=== PATIENT | female | born 2000 | race American Indian/Alaskan Native ===

== ENCOUNTER 2018-02-05 19:45 | Emergency (ER) | payer SELFPAY ==
[2018-02-05 20:24] VITALS: BP 124/73; PULSE 76; RESP 18; TEMP 98.4; O2SAT 99
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
== END 2018-02-05 23:06 | disposition home or self-care (01) ==
LOC: EDSEX → ED 19:45 → EDSEX 19:45 → ED 23:06
DX: S39.012A Strain of muscle, fascia and tendon of lower back, initial encounter (principal); V43.62XA Car passenger injured in collision with other type car in traffic accident, initial encounter